=== PATIENT | female | born 1980 | race Two or more races ===

== ENCOUNTER 2024-04-06 14:36 | Emergency (ER) | payer MEDICARE, MEDICAID, SELFPAY ==
[2024-04-06 15:14] VITALS: BP 121/69; PULSE 94; RESP 18; TEMP 37.1; O2SAT 100
--- NOTE | 2024-04-06 15:16 | XR_ITS ---
Examination: PA lateral chest 2 views TECHNIQUE: Upright PA lateral chest 2 views Exam date and time: April 06, 2024 1526 hours INDICATIONS: Chest pain today FINDINGS: Normal heart size No pneumonia or pulmonary edema Intact osseous structures IMPRESSION: No active disease
--- NOTE | 2024-04-06 15:16 | EKG_ITS ---
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
--- NOTE | 2024-04-06 15:17 | PD.EDRME ---
Rapid Medical Screening Exam E Arrival date/time: 04/06/24 14:36 42-year-old female presents to the emergency department complaints of chest pain, cough and congestion Chief Complaint: Flu Like Symptoms Time Seen by Provider: 04/06/24 14:55 Vital signs: Vital Signs Temperature 98.8 F 04/06/24 15:14 Pulse Rate 94 04/06/24 15:14 Respiratory Rate 18 04/06/24 15:14 Blood Pressure 121/69 04/06/24 15:14 Pulse Oximetry (%) 100 04/06/24 15:14 Oxygen Delivery Method Room Air 04/06/24 15:14
[2024-04-06 16:19] LABS: Basophils # (Auto) 0.1 Thou/mm3 (0.0-0.2); Basophils % (Auto) 2 % (0-2.5); Eosinophils % (Auto) 1 % (0-10); Hematocrit 28.6 % (36.0-46.0); Immature Granulocytes % (Auto) 1 % (0-0); Immature Granulocytes Auto 0.03 Thou/mm3 (0.00-0.00); Lymphocytes # (Auto) 1.2 Thou/mm3 (1.0-4.8); Lymphocytes % (Auto) 25 % (10-50); Mean Corpuscular Hemoglobin 20.8 pg (25.0-35.0); Mean Corpuscular Volume 72 fL (80-100); Monocytes # (Auto) 0.4 Thou/mm3 (0.0-0.8); Monocytes % (Auto) 8 % (0-12); Neutrophils % (Auto) 63 % (37-80); Nucleated Red Blood Cell % 0 /100 WBC (0); Platelet Count 482 Thou/mm3 (140-440); RDW Standard Deviation 45.1 fL (36.4-46.3); White Blood Count 4.8 Thou/mm3 (3.6-11.0)
[2024-04-06 16:33] LABS: Hemoglobin 8.3 g/dL (12.0-16.0)
[2024-04-06 16:50] LABS: Alanine Aminotransferase 8 U/L (10-49); Albumin, Serum 4.9 gm/dL (3.5-5.0); Albumin/Globulin Ratio 1.5 (1.2-2.2); Alkaline Phosphatase 125 U/L (46-116); Anion Gap 9 (7-16); Aspartate Amino Transferase 15 U/L (0-34); BUN/Creatinine Ratio 9 Ratio (12-20); Bilirubin,Total 0.2 mg/dL (0.3-1.2); Blood Urea Nitrogen 7 mg/dL (9-23); Calcium 9.6 mg/dL (8.3-10.6); Calcium (Corrected) 9.6 mg/dL (8.5-10.1); Carbon Dioxide 28.5 mMol/L (20.0-31.0); Chloride 101 mMol/L (98-107); Creatinine (Component) 0.8 mg/dL (0.6-1.3); Estimated Creatinine Clearance 77.9 mL/min (>60); Globulin 3.2 gm/dL (2.3-3.5); Glucose 102 mg/dL (74-106); Osmolality,Calculated 273 (275-295); Potassium 3.4 mMol/L (3.4-5.1); Sodium 138 mMol/L (136-145); Total Protein 8.1 gm/dL (5.7-8.2); Troponin I < 0.002 ng/mL (0.0-0.045); eGFR > 60 See Note
[2024-04-06 19:08] VITALS: BP 132/77; PULSE 82; RESP 20; TEMP 36.9; O2SAT 100
--- NOTE | 2024-04-06 21:02 | PD.EDURI ---
Upper Respiratory Inf. RME/HPI General Chief Complaint: Flu Like Symptoms Stated Complaint: Cough X 2 days, feels heart race Time Seen by Provider: 04/06/24 14:55 Arrival date/time: 04/06/24 14:36 RME / HPI RME / HPI Narrative: 04/06/24 14:36 42-year-old female presents to the emergency department complaints of chest pain, cough and congestion -------- Dr. Teran?s Main ED Evaluation: Patient is a 43-year-old female with history of seizure disorder who presented to the emergency department complaining of recent cough and nasal congestion. Patient states when she coughs she has a left anterior lower ribs pain. She states no pain when not coughing. Patient denies nausea, vomiting, dyspnea, diaphoresis no history of same. Denies recent trauma. No fevers, shakes, chills, sweats. Related Data Home Medications ?Medication ?Instructions ?Recorded ?Confirmed lamotrigine 100 mg tablet 200 mg PO BID #0 tabs 01/07/14 11/19/18 (Lamictal) lacosamide 100 mg tablet (Vimpat) 200 mg PO BID #0 tabs 09/20/15 11/19/18 levetiracetam 500 mg tablet 1,500 mg PO BID #0 tabs 09/20/15 11/19/18 (Keppra) Previous Rx's ?Medication ?Instructions ?Recorded pantoprazole 20 mg tablet,delayed 20 mg PO QDAY #30 tabs 11/27/19 release ofloxacin 0.3 % ear drops 10 drp otic (ear) BID #5 mL 10/26/20 ibuprofen 600 mg tablet 600 mg PO Q6H PRN pain #20 tabs 04/06/24 Allergies Allergy/AdvReac Type Severity Reaction Status Date / Time No Known Allergies Allergy Verified 02/22/24 09:42 Review of Systems Review of Systems Systems Reviewed: All systems reviewed, normal except as documented Past Medical History Past Medical History NEUROLOGIC: Positive Neurological Disorders and Seizures CARDIAC: Negative Congestive Heart Failure RESPIRATORY: Negative Chronic Obstructive Pulmonary Disease (COPD) GENITOURINARY: Negative Renal Disease ENDOCRINE: Negative Diabetes Mellitus Type 1 or Diabetes Mellitus Type 2 Social History SMOKING STATUS: Never smoker ED Exam Narrative Physical exam: GENERAL APPEARANCE: alert and oriented x 4, well-developed, well-nourished, no acute distress VITALS: All vitals were reviewed and the pulse ox is 100% on room air, which is normal according to my interpretation. HEENT: Normocephalic, atraumatic; pupils equal, round, reactive to light; EOMI; mucous membranes pink, moist; oropharynx clear NECK: Supple LUNGS: CTABL; no wheezes, no rales, no rhonchi HEART: Regular rate, regular rhythm; normal S1, S2; no murmurs ABDOMEN: non distended; normal BS; soft, no tenderness, no guarding, no rebound; no masses, no organomegaly, no hernia BACK: no CVA tenderness EXTREMITIES: atraumatic; no edema NEUROLOGIC: awake; alert and oriented x4; cranial nerves II-XII grossly intact; no focal sensory or motor deficits PSYCHIATRIC: appropriate mood and affect SKIN: warm, dry, normal color; no rashes Course Course Course Narrative: CXR is ordered for determining the etiology of cough. Quality Measures none Orders Category Date Time Status Bedside COVID-19 Antigen Test NOW Care 04/06/24 15:16 Completed Bedside Influenza A&B Antigen Test NOW Care 04/06/24 15:16 Completed EKG (ED ONLY) *Do not use* NOW Care 04/06/24 15:16 Completed Discharge Routine Discharge 04/06/24 21:04 Active EKG (ED Only) Stat Exams 04/06/24 15:16 Draft XR chest 2V Stat Exams 04/06/24 15:16 Completed CBC Stat Lab 04/06/24 15:40 Completed Comprehensive Metabolic Panel Stat Lab 04/06/24 15:40 Completed Troponin I Stat Lab 04/06/24 15:40 Completed Vital Signs Vital signs: Vital Signs Temperature 98.8 F 04/06/24 15:14 Pulse Rate 94 04/06/24 15:14 Respiratory Rate 18 04/06/24 15:14 Blood Pressure 121/69 04/06/24 15:14 Pulse Oximetry (%) 100 04/06/24 15:14 Oxygen Delivery Method Room Air 04/06/24 15:14 Upper Respiratory Infection MDM Narrative MDM Narrative:: Exam is completely normal Vital signs are normal and workup is normal Patient discharged with diagnosis of viral upper respiratory infection and she is to follow-up with her primary care doctor Patient data External records reviewed:: [facility] previous records (Per chart review, patient has no relevant previous ED visits or admissions to this facility.) Clinical information provided by:: patient Social determinants that could affect healthcare access:: none Patient has the following chronic illnesses:: seizures How is presenting disease/condition affected by chronic disease/condition?: uneffected by Evaluation data The following diagnostics were reviewed and interpreted by me:: lab results, radiology exam(s) and EKG tracing(s) Lab and/or radiology exams considered but not ordered:: none Interpretation Summary: CBC is normal, CMP is normal, troponin is negative, according to my interpretation. EKG done at 1525, NSR, rate of 90, normal axis, no ectopy, no acute ischemic changes, according to my interpretation. ----- [facility] Report Signed Patient: RADHA MCKNIGHT Record#: [id number] Birthdate: 1980 Age/Sex: 43 / F Location: [facility] Attending Dr: Ordering Physician: Gala CONKLIN),Michael VEGAS Date of Service: 04/06/24 Procedure(s): XR chest 2V Accession Number(s): [id number] cc: Quyen Jean Baptiste; Gala CONKLIN),Michael VEGAS; Abdifatah Sepulveda MD~ Examination: PA lateral chest 2 views TECHNIQUE: Upright PA lateral chest 2 views Exam date and time: April 06, 2024 1526 hours INDICATIONS: Chest pain today FINDINGS: Normal heart size No pneumonia or pulmonary edema Intact osseous structures IMPRESSION: No active disease Dictated By: Abdifatah Sepulveda MD Signed By: <Electronically signed by Abdifatah Sepulveda MD in > 04/06/24 1543 Medications / Prescriptions Medications or Prescriptions considered but not ordered:: none Medication administrations:: none Consultations Consultation(s) initiated? (list below): No Diagnosis Upper Respiratory Differential Diagnosis: upper respiratory infection, viral infection, bronchitis, influenza and other (COVID, pneumonia, costochondritis) Most likely diagnosis given after review of the tests above:: see below Admission Indicated Admission indicated?: not indicated Admission Request Was there a request for admission?: No Disposition Plan Disposition Plan: Discharge Discharge Attestation Discharge Attestation: The patient and all family members were given an opportunity to ask questions and understood the discharge instructions. Discharge instructions specifically effects, indications for sooner follow up or return to the emergency department, and the expected course of current diagnosis. Patient condition: Stable Discharge Plan Plan Patient Disposition: HOME (Self Care) Disposition Comment: Stable for discharge Patient condition on transfer: Stable Prescriptions/Referrals Prescriptions/Med Rec: New ibuprofen 600 mg tablet 600 mg PO Q6H PRN (Reason: pain) Qty: 20 0RF No Action lamotrigine [Lamictal] 100 MG tablet 200 mg PO BID Qty: 0 levetiracetam [Keppra] 500 MG tablet 1,500 mg PO BID Qty: 0 Vimpat 100 MG tablet 200 mg PO BID Qty: 0 ofloxacin 0.3 % drops 10 drp otic (ear) BID Qty: 5 0RF pantoprazole 20 mg tablet,delayed release (DR/EC) 20 mg PO QDAY Qty: 30 0RF Referrals: Quyen Jean Baptiste PA-C [Primary Care Provider] - In 1 week Problem List Clinical Impression: Painful cough Patient/Caregiver Discharge Instructions Discharge Activity: activity as tolerated Education Materials: ED Chest Wall Pain, Costochondritis Additional Instructions: Return to the emergency department for any worsening or any further medical problems Please take the ibuprofen and all medications as directed If you notice that you are getting worse in any way please return to the ER right away Otherwise you should follow-up with your primary care doctor within the next several days. Print Language: Mongolian Stand Alone Forms: Gretchen Award Info., Patient Portal Info Letter
== END 2024-04-06 21:14 | disposition home or self-care (01) ==
PROVIDERS: Nurse Practitioner Primary Care; Emergency Provider Emergency Medicine; PCP Specialist
DX: R05.9 Cough, unspecified (principal); R07.9 Chest pain, unspecified; R94.31 Abnormal electrocardiogram [ECG] [EKG]
CPT/HCPCS: 36415; 71046; 80053; 84484; 85025; 93005; 99283

== ENCOUNTER 2024-10-11 21:06 | Emergency (ER) | payer MEDICARE, MEDICAID, SELFPAY ==
[2024-10-11 21:31] VITALS: BP 121/55; PULSE 79; RESP 18; TEMP 36.9; O2SAT 100
[2024-10-11 21:35] VITALS: BMI 17.4
--- NOTE | 2024-10-11 21:49 | XR_ITS ---
Examination: Pelvic ultrasound, transabdominal, complete Technique: Transabdominal ultrasound of the pelvis performed using grayscale imaging Date and time of exam: October 11, 2024 1032 hours INDICATIONS: Pelvic pain after injury to the pelvis 4 days ago FINDINGS: Uterus 7.0 cm retroverted, no uterine mass or intrauterine gestation Ovaries obscured by bowel gas IMPRESSION: Limited study No uterine mass or intrauterine gestation
--- NOTE | 2024-10-11 21:51 | PD.EDADULT ---
ED General RME/HPI General Chief complaint: General Adult/Misc Complain Stated complaint: KNEE AND HIP PAIN Time Seen by Provider: 10/11/24 22:05 Source: patient Arrival date/time: 10/11/24 21:06 44-year-old female with no known medical history presents to the emergency room with a chief complaint of left-sided pelvic pain x 4 days Mode of arrival: ambulatory Limitations: no limitations Related Data Home Medications ?Medication ?Instructions ?Recorded ?Confirmed lamotrigine 100 mg tablet 200 mg PO BID #0 tabs 01/07/14 11/19/18 (Lamictal) lacosamide 100 mg tablet (Vimpat) 200 mg PO BID #0 tabs 09/20/15 11/19/18 levetiracetam 500 mg tablet 1,500 mg PO BID #0 tabs 09/20/15 11/19/18 (Keppra) Previous Rx's ?Medication ?Instructions ?Recorded pantoprazole 20 mg tablet,delayed 20 mg PO QDAY #30 tabs 11/27/19 release ofloxacin 0.3 % ear drops 10 drp otic (ear) BID #5 mL 10/26/20 ibuprofen 600 mg tablet 600 mg PO Q6H PRN pain #20 tabs 04/06/24 acetaminophen 500 mg tablet 1,000 mg (2 x 500 mg) PO Q6H PRN 10/12/24 pain #30 tabs ibuprofen 600 mg tablet 600 mg PO Q6H PRN pain #20 tabs 10/12/24 Allergies Allergy/AdvReac Type Severity Reaction Status Date / Time No Known Allergies Allergy Verified 02/22/24 09:42 Review of Systems Review of Systems Systems Reviewed: All systems reviewed, normal except as documented Constitutional Constitutional: Reports system reviewed and no additional complaints, except as documented, Denies fatigue, Denies fever(s), Denies headache(s) and Denies weakness Eyes Eyes: Reports system reviewed and no additional complaints, except as documented, Denies blurry vision and Denies change in vision ENT Ears, Nose, Mouth, and Throat: Reports system reviewed and no additional complaints, except as documented, Denies otalgia, Denies headache(s), Denies nasal congestion, Denies throat swelling and Denies vertigo Cardiovascular Cardiovascular: Reports system reviewed and no additional complaints, except as documented, Denies chest pain, Denies dyspnea and Denies dyspnea on exertion Respiratory Respiratory: Reports system reviewed and no additional complaints, except as documented, Denies chest congestion, Denies cough, Denies dyspnea, Denies dyspnea on exertion and Denies wheezing Gastrointestinal Gastrointestinal: Reports system reviewed and no additional complaints, except as documented, Reports abdominal pain, Reports cramping and Denies vomiting Genitourinary Genitourinary: Reports system reviewed and no additional complaints, except as documented Musculoskeletal Musculoskeletal: Reports system reviewed and no additional complaints, except as documented and Denies back pain Integumentary/Breasts Skin/Breast: Reports system reviewed and no additional complaints, except as documented and Denies wounds Neurologic Neurologic: Reports system reviewed and no additional complaints, except as documented, Denies confusion, Denies headache(s), Denies lack of coordination, Denies vertigo and Denies weakness Psychiatric Psychiatric: Reports system reviewed and no additional complaints, except as documented, Denies anxiety, Denies confusion, Denies depression, Denies paranoia, Denies suicidal ideation and Denies tactile hallucinations Endocrine Endocrine: Reports system reviewed and no additional complaints, except as documented and Denies fatigue Hematologic/Lymphatic Hematologic/Lymphatic: Reports system reviewed and no additional complaints, except as documented and Denies lymphadenopathy Allergic/Immunologic Allergic/Immunologic: Reports system reviewed and no additional complaints, except as documented, Denies throat swelling, Denies urticaria and Denies wheezing Past Medical History Past Medical History NEUROLOGIC: Positive Neurological Disorders and Seizures CARDIAC: Negative Congestive Heart Failure RESPIRATORY: Negative Chronic Obstructive Pulmonary Disease (COPD) GENITOURINARY: Negative Renal Disease ENDOCRINE: Negative Diabetes Mellitus Type 1 or Diabetes Mellitus Type 2 Social History SMOKING STATUS: Never smoker ED Exam General Limitations: Present no limitations General appearance: Present alert and in no apparent distress Head Head exam: Present atraumatic Eye Eye exam: Present normal appearance, PERRL and EOMI ENT ENT exam: Present normal exam, normal oropharynx and mucous membranes moist Neck Neck exam: Present normal inspection, full ROM and trachea midline Chest Chest inspection: Present normal inspection and symmetric chest wall rise Respiratory Respiratory exam: Present normal lung sounds bilaterally Cardiovascular Cardiovascular exam: Present regular rate, normal rhythm and normal heart sounds Abdominal Exam Abdominal exam: Present soft, tenderness and normal bowel sounds Abdominal tenderness: Present LLQ and mild Extremities Exam Extremities exam: Present normal inspection and full ROM Back Exam Back exam: Present normal inspection and full ROM Neurological Exam Neurological exam: Present alert, oriented X3 and CN II-XII intact Psychiatric Psychiatric exam: Present normal affect and normal mood Skin Skin exam: Present warm, dry, intact and normal color Course Quality Measures none Orders Category Date Time Status US pelvic complete Stat Exams 10/11/24 21:49 Completed CBC Stat Lab 10/11/24 22:10 Completed CMP [Comprehensive Metabolic Panel] Stat Lab 10/11/24 22:10 Completed HCG Qualitative,Urine Stat Lab 10/11/24 22:50 Completed Lipase Stat Lab 10/11/24 22:10 Completed UA [Urinalysis] Stat Lab 10/11/24 22:50 Completed Urine Culture Stat Lab 10/11/24 22:50 Received Acetaminophen Tab [Tylenol Tab] Med 10/12/24 00:18 Discontinued 650 mg PO X1 ONE HYDROcodone*/APAP 5/325 [[place] 5/325] Med 10/12/24 00:18 Discontinued 1 tab PO X1 ONE Vital Signs Vital signs: Vital Signs Temperature 98.4 F 10/11/24 21:31 Pulse Rate 79 10/11/24 21:31 Respiratory Rate 18 10/11/24 21:31 Blood Pressure 121/55 L 10/11/24 21:31 Pulse Oximetry (%) 100 10/11/24 21:31 Oxygen Delivery Method Room Air 10/11/24 21:31 O2 saturation 100% within normal limits Discharge Plan Plan Patient Disposition: HOME (Self Care) Discharge Disposition comment: Stable for discharge home Patient condition on transfer: Stable Prescriptions/Referrals Prescriptions/Med Rec: New ibuprofen 600 mg tablet 600 mg PO Q6H PRN (Reason: pain) Qty: 20 0RF acetaminophen 500 mg tablet 1,000 mg PO Q6H PRN (Reason: pain) Qty: 30 0RF No Action lamotrigine [Lamictal] 100 MG tablet 200 mg PO BID Qty: 0 levetiracetam [Keppra] 500 MG tablet 1,500 mg PO BID Qty: 0 Vimpat 100 MG tablet 200 mg PO BID Qty: 0 ofloxacin 0.3 % drops 10 drp otic (ear) BID Qty: 5 0RF pantoprazole 20 mg tablet,delayed release (DR/EC) 20 mg PO QDAY Qty: 30 0RF ibuprofen 600 mg tablet 600 mg PO Q6H PRN (Reason: pain) Qty: 20 0RF Referrals: Quyen Jean Baptiste PA-C [Primary Care Provider] - In 1 week Problem List Clinical Impression: Pelvic pain Patient/Caregiver Discharge Instructions Discharge Activity: activity as tolerated Education Materials: ED Pelvic Pain, Unknown Cause Additional Instructions: Please return to the emergency department if you have any worsening or any further medical problems and we will help you. Otherwise you should follow-up with your primary care doctor within the next several days I have sent two prescriptions to your pharmacy to be picked up in the morning. One is acetaminophen 500mg which is also known as tylenol. You should take two tabs up to every 6 hours for pain. The other medicine is ibuprofen 600mg, also known as motrin. You should take one tab up to every 6 hours for pain. Print Language: Slovenian Stand Alone Forms: Gretchen Award Info., Patient Portal Info Letter MDM Narrative MDM hospital course: 44-year-old female with no known medical history presents to the emergency room with a chief complaint of left-sided pelvic pain x 4 days Patient is hemodynamically stable and in no apparent distress. She is afebrile not tachycardic not tachypneic Physical examination shows left lower quadrant abdominal and pelvic pain x 4 days. CBC CMP and urinalysis and a pelvic ultrasound were ordered but the patient was signed out to my attending physician Dr. Teran pending results. Dr. Teran will assume care and follow-up with orders. Clinical Information Provided by none Medical Records Reviewed None Meds/Rx Considered, not Ordered None Labs/Rad/Tests considered, not Ordered None Chronic Illness/Social Conditions which may negatively complicate care or outcome(s)-explain: None or not applicable EKG EKG not done Lab Interpretation Labs: none Imaging Imaging interpretation: none Medication Administration(s) none Medication Administration History Discontinued Medications Acetaminophen (Acetaminophen 325 Mg Tablet) 650 mg PO X1 ONE Stop: 10/12/24 00:19 Last Admin: 10/12/24 00:38 Dose: 650 mg Documented By: ADRIANA Hydrocodone Bitart/Acetaminophen (Hydrocodone/Apap 5/325 Tablet) 1 tab PO X1 ONE Stop: 10/12/24 00:19 Last Admin: 10/12/24 00:38 Dose: 1 tab Documented By: ADRIANA Diagnosis Differential diagnosis: Pelvic pain/UTI/ovarian cyst/gastroenteritis Most likely dx, and/or detailed dx discussion: Pelvic pain Dispositon Disposition: Discharge Home
[2024-10-11 22:20] LABS: Basophils # (Auto) 0.1 Thou/mm3 (0.0-0.2); Basophils % (Auto) 2 % (0-2.5); Eosinophils % (Auto) 1 % (0-10); Hematocrit 27.2 % (36.0-46.0); Immature Granulocytes % (Auto) 1 % (0-0); Immature Granulocytes Auto 0.02 Thou/mm3 (0.00-0.00); Lymphocytes # (Auto) 1.1 Thou/mm3 (1.0-4.8); Lymphocytes % (Auto) 25 % (10-50); Mean Corpuscular HGB Conc 30.1 g/dl (31.0-37.0); Mean Corpuscular Hemoglobin 21.4 pg (25.0-35.0); Mean Corpuscular Volume 71 fL (80-100); Monocytes # (Auto) 0.5 Thou/mm3 (0.0-0.8); Monocytes % (Auto) 12 % (0-12); Neutrophils # (Auto) 2.7 Thou/mm3 (1.8-7.7); Neutrophils % (Auto) 60 % (37-80); Nucleated Red Blood Cell % 0 /100 WBC (0); Platelet Count 421 Thou/mm3 (140-440); RDW Standard Deviation 46.8 fL (36.4-46.3); Red Blood Count 3.83 Miln/mm3 (4.00-5.20); White Blood Count 4.4 Thou/mm3 (3.6-11.0)
[2024-10-11 22:22] LABS: Hemoglobin 8.2 g/dL (12.0-16.0)
[2024-10-11 22:45] LABS: Alanine Aminotransferase < 7 U/L (10-49); Albumin, Serum 4.7 gm/dL (3.5-5.0); Albumin/Globulin Ratio 1.8 (1.2-2.2); Alkaline Phosphatase 85 U/L (46-116); Anion Gap 10 (7-16); Aspartate Amino Transferase 16 U/L (0-34); BUN/Creatinine Ratio 12 Ratio (12-20); Bilirubin,Total 0.3 mg/dL (0.3-1.2); Blood Urea Nitrogen 7 mg/dL (9-23); Calcium 9.4 mg/dL (8.3-10.6); Calcium (Corrected) 9.4 mg/dL (8.5-10.1); Carbon Dioxide 26.2 mMol/L (20.0-31.0); Chloride 103 mMol/L (98-107); Creatinine (Component) 0.6 mg/dL (0.6-1.3); Estimated Creatinine Clearance 92.5 mL/min (>60); Globulin 2.6 gm/dL (2.3-3.5); Glucose 113 mg/dL (74-106); Lipase 46 U/L (12-53); Osmolality,Calculated 276 (275-295); Potassium 3.4 mMol/L (3.4-5.1); Sodium 139 mMol/L (136-145); Total Protein 7.3 gm/dL (5.7-8.2); eGFR > 60 See Note
--- NOTE | 2024-10-11 22:45 | PC.NURSE ---
Pt A/O x 3 with c/o LLQ intermittent abd pain, pt denies any N/V/D pt reports pain for the past 4 days with increasing pain, pt denies any trauma or recent illness, pt does states that she was seen at another hospital for the pain within the past week.
[2024-10-11 22:49] VITALS: BP 110/50; PULSE 78; RESP 18; TEMP 36.9; O2SAT 100
--- NOTE | 2024-10-11 22:57 | EDNOTE_ITS ---
Emergency Room Addendum <Gayathri Patiño - Last Filed: 10/12/24 00:12> Addendum Narrative: 2300: Care assumed from Ottoniel Steele NP (emergency provider). Past medical, surgical, social and family history reviewed. Vitals and home medications reviewed. Results and treatment plan discussed. They will assume the care of the patient at this time and will follow the patient, pending labs and CT. The following addendum documentation note is intended to reflect any pending information, findings, or radiology results not included in the patient?s initial chart by the previous shift scribe. RADIOLOGY Pelvis US: Patient: RADHA MKCNIGHT. Record#: [id number] Birthdate: 1980 Age/Sex: 44 / F [facility] Attending Dr: Ordering Physician: Chi Lyman Date of Service: 10/11/24 Procedure(s): US pelvic complete Accession Number(s): [id number] cc: Quyen Jean Baptiste; Chi Lyman; Abdifatah Sepulveda MD~ Examination: Pelvic ultrasound, transabdominal, complete Technique: Transabdominal ultrasound of the pelvis performed using grayscale imaging Date and time of exam: October 11, 2024 1032 hours INDICATIONS: Pelvic pain after injury to the pelvis 4 days ago FINDINGS: Uterus 7.0 cm retroverted, no uterine mass or intrauterine gestation Ovaries obscured by bowel gas IMPRESSION: Limited study No uterine mass or intrauterine gestation Dictated By: Abdifatah Sepulveda MD Signed By: <Electronically signed by Abdifatah Sepulveda MD in OV> 10/11/24 2318 LABS Hematology: RBC 3.83, Hgb 8.2, Hct 27.2%, MCV 71, MCH 21.4, MCHC 30.1, RDW Std Deviation 46.8, Immature Gran # 0.02, Immature Gran % 1%. Chemistry: BUN 7, Glucose 113, ALT < 7. Urines: 0005: I have spoken with the patient and discussed today?s findings, in addition to providing specific details for the plan of care. Questions are answered and there is an agreement with the plan. Re-assessment at the time of disposition demonstrates that the patient is in no acute distress, denies abdominal tenderness, and all tests are unremarkable. The patient has remained stable throughout the entire ED visit and is without objective evidence for acute process requiring urgent intervention or hospitalization. The patient is stable for discharge; counseling is provided and documented as above, discussing symptomatic treatment and specific conditions for return. <Crystal Howard - Last Filed: 10/13/24 03:44> Addendum Narrative: 2300: Care assumed from Ottoniel Steele NP (emergency provider). Past medical, surgical, social and family history reviewed. Vitals and home medications reviewed. Results and treatment plan discussed. I will assume the care of the patient at this time and will follow the patient, pending labs and CT. Please refer to the emergency department record for history and examination from initial visit. RADIOLOGY Pelvis US: Patient: RADHA MCKNIGHT [facility]. Record#: [id number] Birthdate: 1980 Age/Sex: 44 / F [facility] Attending Dr: Ordering Physician: Chi Lyman Date of Service: 10/11/24 Procedure(s): US pelvic complete Accession Number(s): [id number] cc: Quyen Jean Baptiste; Chi Lyman; Abdifatah Sepulveda MD~ Examination: Pelvic ultrasound, transabdominal, complete Technique: Transabdominal ultrasound of the pelvis performed using grayscale imaging Date and time of exam: October 11, 2024 1032 hours INDICATIONS: Pelvic pain after injury to the pelvis 4 days ago FINDINGS: Uterus 7.0 cm retroverted, no uterine mass or intrauterine gestation Ovaries obscured by bowel gas
[2024-10-11 23:03] LABS: Collection Type, Urine Clean Catch
[2024-10-11 23:17] LABS: HCG Qualitative,Urine Negative
[2024-10-11 23:21] LABS: Bilirubin,Urine Negative (Negative); Blood,Urine 3+ (Negative); Clarity,Urine Clear (Clear/Hazy); Color,Urine Colorless (Lt Yel-Yel); Glucose, Urine Negative (Negative); Ketones,Urine Negative (Negative); Leukocyte Esterase,Urine Negative (Negative); Nitrite,Urine Negative (Negative); PH,Urine 7.5 (5.0-7.0); Protein,Urine Negative (Neg - Trace); RBC,Urine 1 /hpf (0-3); Specific Gravity,Urine 1.008 (1.001-1.035); Squamous Epithelial Cell,Urine 6 /hpf (0-5); Urobilinogen,Urine Negative mg/dL (0.0-1.0); WBC,Urine 3 /hpf (0-5)
[2024-10-12] VITALS: BP 109/73; PULSE 75; RESP 20; TEMP 36.9; O2SAT 100
[2024-10-12] MEDS: HYDROcodone/APAP 5/325 TABLET 1 TAB PO (00:38)
[2024-10-12] MEDS: ACETAMINOPHEN 325 MG TABLET 650 MG PO (00:38)
== END 2024-10-12 01:04 | disposition home or self-care (01) ==
PROVIDERS: Nurse Practitioner Family; Emergency Provider Emergency Medicine; PCP Specialist
DX: S39.93XA Unspecified injury of pelvis, initial encounter (principal); X58.XXXA Exposure to other specified factors, initial encounter
CPT/HCPCS: 36415; 76856; 80053; 81001; 81025; 83690; 85025; 87086; 99284; A9270